=== PATIENT | female | born 1970 | race Caucasian/White ===

== ENCOUNTER 2017-03-20 22:40 | Emergency (ER) | payer SELFPAY ==
[~2017-03-20 22:40] MED LIST: AMOXIL500 M1 PO; KLONOPIN1 MG PO; PROZAC10 MG PO; ULTRAM PO
[2017-03-20] MEDS ORDERED: KEPPRA250 MG (22:58)
[2017-03-20 23:26] LABS: URINE SOURCE CLEAN CATCH
[2017-03-20 23:28] LABS: URINE APPEARANCE CLEAR; URINE BILIRUBIN NEG (NEG); URINE BLOOD TRACE-INTACT (NEG); URINE COLOR YELLOW; URINE GLUCOSE NEG (NORM); URINE KETONE NEG (NEG); URINE LEUKOCYTE ESTERASE NEG (NEG); URINE NITRATE NEG (NEG); URINE PROTEIN NEG (NEG); URINE UROBILINOGEN 0.2 MG/DL (NORM)
[2017-03-20 23:29] LABS: CULTURE INDICATED? NO; MICRO INDICATED? YES; URINE BACTERIA NEG (NEG); URINE SQUAMOUS EPITHELIAL CELL FEW /[HPF]; URINE TRANSITIONAL EPI CELLS FEW /[HPF]; URINE WBC 0-2 /[HPF] (0-5)
[2017-03-20 23:37] LABS: AMPHETAMINE NEG (NEG); BARBITURATES NEG (NEG); BENZODIAZEPINES POS (NEG); COCAINE NEG (NEG); MARIJUANA NEG (NEG); OPIATES POS (NEG); TRICYCLIC ANTIDEPRESSANTS NEG (NEG); U METHADONE NEG (NEG)
[2017-03-21 00:02] LABS: ALCOHOL BLOOD <5 mg/dL (0); BLOOD UREA NITROGEN 10 mg/dL (9-23); CALCIUM SERUM 9.7 mg/dL (8.4-10.2); CARBON DIOXIDE 27 mmol/L (22-31); CHLORIDE 103 mmol/L (100-111); CREATININE SERUM 0.8 mg/dL (0.6-1.4); GLOM FILT RATE Estimated 88.5 mL/min (>60); GLUCOSE FASTING 92 mg/dL (70-110); POTASSIUM 3.6 mmol/L (3.5-5.1); SODIUM 138 mmol/L (135-145)
== END 2017-03-21 01:23 | disposition home or self-care (01) ==
LOC: SED 22:40
PROVIDERS: Emergency Medicine
DX: G40.909 Epilepsy, unspecified, not intractable, without status epilepticus (principal); F19.10 Other psychoactive substance abuse, uncomplicated; F41.9 Anxiety disorder, unspecified
CPT/HCPCS: 36415; 80048; 80307; 81003; 96374; 99285; G0480; J1953